=== PATIENT | female | born 1990 | race African-American/Black ===

== ENCOUNTER → 2017-02-08 | Outpatient (CLI) | payer OTHER ==
[~2017-02-08] VITALS: Ht 165.1 cm; Wt 90.0 kg
[~2017-02-08] MED LIST: LIDOCAINE20 MG/1 M5 PO; MICRONOR0.35 MG PO; Motrin PO; NAPROSYN500 MG PO; NOHOMEMEDS
[2017-02-08 13:18] VITALS: BP 115/64
== END | disposition home or self-care (01) ==
LOC: IVINF 02-07 13:00 → EDSTATUS 02-07 13:00 → IVINF 02-07 15:30
DX: Z31.82 Encounter for Rh incompatibility status (principal)
CPT/HCPCS: 96372; J2790

== ENCOUNTER 2017-04-23 00:22 | Inpatient (IN) | payer OTHER ==
[2017-04-23] VITALS (10 sets, daily range): BP systolic 104–127; BP diastolic 55–96
[2017-04-23 01:25] LABS: EOSINOPHIL (%) 0.4 % (0-5); EOSINOPHIL COUNT 0.1 K/uL (0-0.3); IMMATURE GRANULOCYTE (%) 0.7 % (0.0-0.7); IMMATURE GRANULOCYTE COUNT 0.1 K/uL; INSTRUMENT ABS NEUTROPHIL CT 10.9 K/uL; LYMPHOCYTE COUNT 1.5 K/uL (1.0-2.8); MCH 27.3 PG (29.0-34.0); MCHC 32.4 G/DL (30.0-36.0); MCV 84.2 FL (83-99); MEAN PLAT.VOLUME 9.4 uM^3 (9.5-12.4); MONOCYTE (%) 6.5 % (3-12); MONOCYTE COUNT 0.9 K/uL (0-0.8); NEUTROPHIL (%) 81.1 % (45-76); NEUTROPHIL COUNT 10.9 K/uL (1.8-6.4); PLATELET COUNT 246 K/uL (156-360); RBC DIS.WIDTH-CV 13.1 % (11.8-14.6); RBC DIS.WIDTH-SD 39.6 % (39-53); RED BLOOD COUNT 3.92 M/uL (3.80-5.20); WHITE BLOOD COUNT 13.4 K/uL (4.1-10.2)
[2017-04-23] MEDS ORDERED: TERAZOL 745 GM VG (07:04)
[2017-04-24 06:42] LABS: EOSINOPHIL COUNT 0.1 K/uL (0-0.3); HEMATOCRIT 34.8 % (36.0-46.0); IMMATURE GRANULOCYTE (%) 0.8 % (0.0-0.7); IMMATURE GRANULOCYTE COUNT 0.1 K/uL; INSTRUMENT ABS NEUTROPHIL CT 9.1 K/uL; LYMPHOCYTE COUNT 2.4 K/uL (1.0-2.8); MCH 26.5 PG (29.0-34.0); MCV 85.3 FL (83-99); MEAN PLAT.VOLUME 9.3 uM^3 (9.5-12.4); MONOCYTE (%) 6.7 % (3-12); MONOCYTE COUNT 0.9 K/uL (0-0.8); NEUTROPHIL (%) 72.1 % (45-76); NEUTROPHIL COUNT 9.1 K/uL (1.8-6.4); PLATELET COUNT 283 K/uL (156-360); RBC DIS.WIDTH-CV 13.1 % (11.8-14.6); RED BLOOD COUNT 4.08 M/uL (3.80-5.20); WHITE BLOOD COUNT 12.6 K/uL (4.1-10.2)
[2017-04-24 07:21] VITALS: BP 119/79
[2017-04-24] MEDS ORDERED: IBUPROFEN800 MG PO (11:32)
== END 2017-04-24 12:30 | disposition home or self-care (01) | DRG 774 ==
LOC: LDRP-OP → 2WEST 00:23 → LDRP-OP 05-13 20:23
PROVIDERS: Advanced Practice Midwife
PROC: 10E0XZZ Delivery of Products of Conception, External Approach (ICD-10-PCS; principal; 2017-04-23)
DX: O66.0 Obstructed labor due to shoulder dystocia (principal); O98.82 Other maternal infectious and parasitic diseases complicating childbirth; B37.9 Candidiasis, unspecified; Z3A.38 38 weeks gestation of pregnancy; Z37.0 Single live birth; O99.214 Obesity complicating childbirth; E66.3 Overweight; Z68.28 Body mass index [BMI] 28.0-28.9, adult
CPT/HCPCS: 85025; J7120